=== PATIENT | male | born 1950 | race African-American/Black ===

== ENCOUNTER 2017-05-15 19:43 | Emergency (ER) | payer BC, MEDICARE ==
[2017-05-15] MEDS: ACETAMINOPHEN 500 MG TABLET PO (21:09)
[2017-05-15] MEDS: IBUPROFEN 400 MG TABLET. PO (21:09)
== END 2017-05-15 21:14 | disposition home or self-care (01) ==
LOC: ER 19:43
DX: S16.1XXA Strain of muscle, fascia and tendon at neck level, initial encounter (principal); S40.012A Contusion of left shoulder, initial encounter; S00.03XA Contusion of scalp, initial encounter; I10 Essential (primary) hypertension; W01.198A Fall on same level from slipping, tripping and stumbling with subsequent striking against other object, initial encounter; Y93.01 Activity, walking, marching and hiking; Y92.481 Parking lot as the place of occurrence of the external cause; Y99.8 Other external cause status
CPT/HCPCS: 70450; 73030; 99284-25

== ENCOUNTER → 2018-02-23 | Outpatient (CLI) | payer BC, MEDICARE ==
[2017-05-15 19:56] VITALS: BP 148/72
[~2018-02-23] MED LIST: ACET325T9 PO; NAPR-683 PO
--- NOTE | 2018-02-23 17:28 | KCIC ---
History: Posterior knee pain beginning after pushing down shovel. Comparison: None. Findings: AP and lateral weightbearing right knee radiographs. Merchant views of the right knee. 4 total images. No joint effusion is seen. No acute fracture or dislocation is identified. Mild-moderate medial compartment degeneration is seen with marginal osteophyte formation and mild loss of joint space. Lateral compartment appears preserved. Mild patellofemoral compartment degeneration is seen. There is fragmented patellar tendon enthesophyte at the tibial attachment. There is associated anterior soft tissue swelling. Impression: 1. Fragmented patellar tendon enthesophyte at the tibial attachment with associated anterior soft tissue swelling. 2. No acute fracture involving the osseous structures. 3. Mild-moderate medial compartment and mild patellofemoral compartment degeneration. Electronically signed by: Juan Aly MD (02/23/2018 5:25 PM) [facility]
== END | disposition home or self-care (01) ==
LOC: KCIC 15:32
PROVIDERS: ATTEND Nurse Practitioner Gerontology
DX: M17.11 Unilateral primary osteoarthritis, right knee (principal); M76.51 Patellar tendinitis, right knee
CPT/HCPCS: 73562